=== PATIENT | female | born 1985 | race Caucasian/White ===

== ENCOUNTER 2022-07-08 23:51 | Emergency (ER) | payer MEDICAID ==
[~2022-07-08] VITALS: Ht 165.1 cm; Wt 137.0 kg
[2022-07-09] MEDS ORDERED: ONDANSETRON 4MG ODT PO STA (02:32)
[2022-07-09 03:09] LABS: CLARITY URINE CLOUDY (CLEAR); COLOR URINE YELLOW (YELLOW); KETONES URINE TRACE (NEGATIVE); LEUKOCYTE ESTERASE URINE NEGATIVE (NEGATIVE); NITRITE URINE NEGATIVE (NEGATIVE); OCCULT BLOOD URINE 3+ (NEGATIVE); PROTEIN URINE NEGATIVE (NEGATIVE); SPECIFIC GRAVITY URINE 1.036 (1.005-1.030)
[2022-07-09 03:17] LABS: HCG SCREEN NEGATIVE
[2022-07-09 03:19] LABS: BASOPHILS % 0.6 % (0.0-2.0); EOSINOPHILS % 1.8 % (0.0-5.0); HEMATOCRIT. 40.9 % (36.0-48.0); HEMOGLOBIN. 13.6 g/dL (12.0-16.0); LYMPHOCYTES % 30.9 % (20.0-50.0); MEAN CORPUSCULAR HEMOGLOBIN 29.8 pg (28.0-32.0); MEAN CORPUSCULAR VOLUME 89.8 fL (81.0-99.0); MEAN PLATELET VOLUME 10.3 fl (7.4-10.4); MONOCYTES % 4.5 % (2.0-8.0); NEUTROPHILS % 62.2 % (40.0-76.0); PLATELET 356 x1000/uL (130-400); RED BLOOD CELL COUNT 4.55 mill/uL (4.2-5.4); RED CELL DISTRIBUTION WIDTH 13.2 % (11.6-14.6)
[2022-07-09 03:22] LABS: CHLORIDE 102 mEq/L (98-107)
[2022-07-09 04:15] VITALS: BP 135/99
[2022-07-09] MEDS ORDERED: KETOROLAC 30MG/ML VIAL IM ONE (04:15)
[2022-07-09] MEDS ORDERED: AMOX1TAB16 PO (06:16)
[2022-07-09] MEDS ORDERED: IOHEXOL-300 100 ML BOTTLE ONE (06:20)
== END 2022-07-09 06:36 | disposition home or self-care (01) ==
LOC: ER 23:51
DX: K57.92 Diverticulitis of intestine, part unspecified, without perforation or abscess without bleeding (principal); I10 Essential (primary) hypertension
CPT/HCPCS: 36415; 74177; 80053; 81003; 81025; 83690; 84703; 85025; 96372; 99285; J1885; Q0162; Q9967; Z7610